=== PATIENT | male | born 1930 | race Caucasian/White ===

== ENCOUNTER 2016-12-07 13:07 | Outpatient (CLI) ==
[2014-09-23 14:34] VITALS: BMI 25.8
--- NOTE | 2016-12-10 10:11 | HOLTER ---
PATIENT INFORMATION AND COMMENTS Indications: BRADYCARDIA __ Patient Medications: BENICAR, AMLODIPINE, OMEPRAZOLE, METOPROLOL, ASA __ Pre-procedure Summary: Protocol: Standard Heart Rate Started: 12/07/16 1324 Minimum: 25/MIN Weight: 198 LBS Ended: 12/08/16 1324 Maximum: 227/MIN Height: 73" Duration: 24 HOURS Average: _ INTERPRETATIONS/OBSERVATIONS: 1. BASIC RHYTHM: SINUS, RATE 25/MINUTE TO 80/MINUTE, AVERAGE 45 TO 50/MINUTE 2. INFREQUENT TO RARE PAC'S/PVC'S 3. FREQUENT PAUSES OF GREATER THAN 2.5 SECONDS, LONGEST PAUSE [address]-T WAVE CHANGES FROM BASE LINE 5. JUNCTIONAL RHYTHM WITH RATE 35 BEATS A MINUTE, SHORT RUNS NOTED 6. ACTIVITY LOG BLANK DR. AQUINO CALLED WITH RESULTS APPROXIMATELY 6 PM 12/09/16 [facility]
== END 2016-12-07 13:08 | disposition home or self-care (01) ==
LOC: CAR 13:07
PROVIDERS: ATTEND General Practice
DX: R00.1 Bradycardia, unspecified (principal)
CPT/HCPCS: 93005; 93010

== ENCOUNTER 2017-04-05 11:38 | Outpatient (CLI) ==
[2014-09-23 14:34] VITALS: BMI 25.8
[2017-04-05 12:52] LABS: BASOPHILS # (AUTO) 0.1 K/uL (0-0.2); EOSINOPHILS # (AUTO) 0.2 K/ul (0.0-0.7); EOSINOPHILS % (AUTO) 3.3 % (0.0-7.0); HEMOGLOBIN 14.5 g/dl (14.0-18.0); IMMATURE GRANULOCYTE % (AUTO) 0.4 % (0.0-5.0); LYMPHOCYTES # (AUTO) 1.8 K/uL (0.60-3.4); MEAN CORPUSCULAR HEMOGLOBIN 30.1 pg (27.0-31.0); MEAN CORPUSCULAR HGB CONC 34.5 (31.8-35.4); MEAN CORPUSCULAR VOLUME 87.3 fl (80.0-94.0); MONOCYTES # (AUTO) 0.5 K/uL (0.4-2.0); MONOCYTES % (AUTO) 9.4 (0-10); NEUTROPHILS # (AUTO) 2.7 K/ul (2.0-6.9); NEUTROPHILS % (AUTO) 50.9; PLATELET COUNT 199 10^3/uL (140-440); RED BLOOD COUNT 4.81 10^6/ul (4.70-6.10); WHITE BLOOD COUNT 5.23 K/ul (4.2-10.2)
[2017-04-05 13:00] LABS: BILIRUBIN,URINE Negative (NEGATIVE); KETONES,URINE Negative (NEGATIVE); LEUKOCYTE ESTERASE ,URINE Negative (NEGATIVE); NITRITE,URINE Negative (NEGATIVE); PROTEIN,URINE Negative (NEGATIVE); URINE, BLOOD Negative (NEGATIVE)
[2017-04-05 13:04] LABS: ADD URINE MICROSCOPIC NO
[2017-04-05 13:10] LABS: ALBUMIN 3.9 g/dL (3.4-5.0); ALBUMIN/GLOBULIN RATIO 1.11; ANION GAP 11.9; BILIRUBIN,TOTAL 0.82 mg/dL (0.00-1.20); BUN/CREATININE RATIO 13.48; CALCIUM 9.4 mg/dL (8.2-10.2); CHOL/HDL RATIO 2.9 (4.5-6.4); CREATININE 0.89 mg/dL (0.60-1.10); POTASSIUM 3.9 mmol/L (3.5-5.1); TOTAL PROTEIN 7.4 g/dL (5.8-8.1)
== END 2017-04-05 11:39 | disposition home or self-care (01) ==
LOC: LAB 11:38
PROVIDERS: ATTEND General Practice
DX: I10 Essential (primary) hypertension (principal); G25.0 Essential tremor; Z79.899 Other long term (current) drug therapy
CPT/HCPCS: 36415; 80053; 80061; 81001; 83036; 85025

== ENCOUNTER 2017-07-30 13:03 | Outpatient (CLI) ==
[2014-09-23 14:34] VITALS: BMI 25.8
[2017-07-30 13:40] LABS: BILIRUBIN,URINE Negative (NEGATIVE); KETONES,URINE Negative (NEGATIVE); LEUKOCYTE ESTERASE ,URINE Negative (NEGATIVE); NITRITE,URINE Negative (NEGATIVE); PH,URINE 7.5 (5-9); PROTEIN,URINE Negative (NEGATIVE); URINE, BLOOD Trace-intact (NEGATIVE)
[2017-07-30 13:42] LABS: BASOPHILS % (AUTO) 0.5 % (0.0-3.0); EOSINOPHILS # (AUTO) 0.3 K/ul (0.0-0.7); EOSINOPHILS % (AUTO) 4.9 % (0.0-7.0); HEMATOCRIT 41.9 % (42.0-52.0); HEMOGLOBIN 14.1 g/dl (14.0-18.0); IMMATURE GRANULOCYTE % (AUTO) 0.2 % (0.0-5.0); LYMPHOCYTES # (AUTO) 1.4 K/uL (0.60-3.4); LYMPHOCYTES % (AUTO) 25.2 (10.0-50.0); MEAN CORPUSCULAR HEMOGLOBIN 30.3 pg (27.0-31.0); MEAN CORPUSCULAR HGB CONC 33.7 (31.8-35.4); MEAN CORPUSCULAR VOLUME 89.9 fl (80.0-94.0); MONOCYTES # (AUTO) 0.6 K/uL (0.4-2.0); MONOCYTES % (AUTO) 10.8 (0-10); NEUTROPHILS # (AUTO) 3.3 K/ul (2.0-6.9); NEUTROPHILS % (AUTO) 58.4; PLATELET COUNT 214 10^3/uL (140-440); RED BLOOD COUNT 4.66 10^6/ul (4.70-6.10); WHITE BLOOD COUNT 5.56 K/ul (4.2-10.2)
[2017-07-30 13:44] LABS: ADD URINE MICROSCOPIC YES
[2017-07-30 14:12] LABS: ALBUMIN 3.8 g/dL (3.4-5.0); ALBUMIN/GLOBULIN RATIO 1.15; ANION GAP 12.7; BILIRUBIN,TOTAL 0.7 mg/dL (0.00-1.20); BUN/CREATININE RATIO 12.79; CALCIUM 9.8 mg/dL (8.2-10.2); CHOL/HDL RATIO 3.2 (4.5-6.4); CREATININE 0.86 mg/dL (0.60-1.10); POTASSIUM 3.7 mmol/L (3.5-5.1); TOTAL PROTEIN 7.1 g/dL (5.8-8.1)
== END 2017-07-30 13:04 | disposition home or self-care (01) ==
LOC: LAB 13:03
PROVIDERS: ATTEND General Practice
DX: G25.0 Essential tremor (principal); I10 Essential (primary) hypertension; Z79.899 Other long term (current) drug therapy
CPT/HCPCS: 36415; 80053; 80061; 81001; 83036; 85025

== ENCOUNTER 2017-09-18 14:13 | Outpatient (CLI) ==
[2014-09-23 14:34] VITALS: BMI 25.8
--- NOTE | 2017-09-18 14:34 | DI ---
EXAM: Radiographs, right shoulder HISTORY: Right shoulder pain. COMPARISON: None available. TECHNIQUE: Three views. FINDINGS: The bones are demineralized. Severe glenohumeral joint space narrowing noted with associa keira subchondral sclerosis, subchondral cyst and marginal osteophyte formation. Cystic change seen in the greater tuberosity of the humerus. Some calcification suggested within the rotator cuff tendons . Mild acromioclavicular joint space narrowing and spurring noted. Right lung is clear save for bill cified granulomatous changes. Pacemaker leads are partially imaged. IMPRESSION: 1. Advanced glenohumeral osteoarthritis. 2. Mild acromioclavicular osteoarthritis. 3. Findings suggest rotator cuff pathology.
== END 2017-09-18 14:14 | disposition home or self-care (01) ==
LOC: RAD 14:13
PROVIDERS: ATTEND General Practice
DX: M25.511 Pain in right shoulder (principal)

== ENCOUNTER 2017-12-20 11:18 | Outpatient (CLI) ==
[2014-09-23 14:34] VITALS: BMI 25.8
== END 2017-12-20 11:19 | disposition home or self-care (01) ==
LOC: LAB 11:18
PROVIDERS: ATTEND General Practice
DX: R31.29 Other microscopic hematuria (principal); I10 Essential (primary) hypertension; Z79.899 Other long term (current) drug therapy
CPT/HCPCS: 36415; 80053; 80061; 81001; 85025

== ENCOUNTER 2018-04-15 09:45 | Outpatient (CLI) | payer OTHER ==
[2014-09-23 14:34] VITALS: BMI 25.8
== END 2018-04-15 09:46 | disposition home or self-care (01) ==
LOC: FCC-LAB 09:45
PROVIDERS: ATTEND General Practice
DX: I10 Essential (primary) hypertension (principal); Z79.899 Other long term (current) drug therapy
CPT/HCPCS: 36415; 80053; 80061; 81001; 85025

== ENCOUNTER 2018-08-22 16:16 | Outpatient (CLI) ==
[2014-09-23 14:34] VITALS: BMI 25.8
== END 2018-08-22 16:17 | disposition home or self-care (01) ==
LOC: FCC-LAB 16:16
PROVIDERS: ATTEND General Practice
DX: I10 Essential (primary) hypertension (principal); R00.1 Bradycardia, unspecified; M15.9 Polyosteoarthritis, unspecified; G25.0 Essential tremor; Z79.899 Other long term (current) drug therapy
CPT/HCPCS: 36415; 80053; 80061; 81001; 85025

== ENCOUNTER 2018-12-17 07:59 | Outpatient (CLI) ==
[2014-09-23 14:34] VITALS: BMI 25.8
== END 2018-12-17 08:00 | disposition home or self-care (01) ==
LOC: RHC-LAB 07:59
PROVIDERS: ATTEND General Practice
DX: R00.1 Bradycardia, unspecified (principal); R31.29 Other microscopic hematuria; G25.0 Essential tremor; M15.9 Polyosteoarthritis, unspecified; I10 Essential (primary) hypertension; Z79.899 Other long term (current) drug therapy
CPT/HCPCS: 36415; 80053; 80061; 81001; 85025